=== PATIENT | female | born 1940 | race Caucasian/White ===

== ENCOUNTER 2017-03-16 09:05 | Day surgery (SDC) | payer MEDICARE, OTHER ==
[2017-03-16] VITALS (12 sets, daily range): BP systolic 131–188; BP diastolic 52–66; PULSE 45–70; TEMP 97.7
[~2017-03-16] VITALS: Ht 152.4 cm; Wt 71.3 kg
[~2017-03-16 09:05] MED LIST: NO HOME MEDICATIONS
[2017-03-16 09:40] LABS: HEMATOCRIT 40.2 % (37.0-47.0); HEMOGLOBIN 13.7 g/dl (12.5-16.0); MEAN CELL VOLUME 87 fl (80.0-100.0); MEAN CORPUSCULAR HEMOGLOBIN 30 pg (27.0-31.0); MEAN CORPUSCULAR HGB CONC 34 g/dl (33.0-37.0); MEAN PLATELET VOLUME 10.5 fl (7.4-10.4); PLATELET COUNT 209 K/mm3 (130-400); RED BLOOD COUNT 4.61 M/mm3 (4.10-5.30); WHITE BLOOD COUNT 7.9 K/mm3 (4.8-10.8)
[2017-03-16 09:44] LABS: PROTHROMBIN TIME 11.6 SECONDS (9.7-12.8)
[2017-03-16 09:59] LABS: CALCIUM 8.8 mg/dL (8.4-10.2); CREATININE, serum 0.86 mg/dL (0.52-1.25); POTASSIUM 4.3 mmol/L (3.4-5.0)
[2017-03-16] MEDS ORDERED: ASPIRIN 81M81 MG/TA2 PO (10:15)
[2017-03-16] MEDS ORDERED: LANTUS SOLOS100 U/ML SQ ×2 (10:16→10:18)
[2017-03-16] MEDS ORDERED: SYNTHROID0.1 MG/TAB PO (10:19)
[2017-03-16] MEDS ORDERED: PRINIVIL5 MG PO (10:19)
[2017-03-16] MEDS ORDERED: ZOCOR 40MG40 MG PO (10:20)
[2017-03-16] MEDS ORDERED: TOPROL XL 25MG25 MG PO (10:20)
== END 2017-03-16 15:48 | disposition home or self-care (01) ==
LOC: COL.CAR 09:05
PROVIDERS: Internal Medicine Cardiovascular Disease
DX: I25.10 Atherosclerotic heart disease of native coronary artery without angina pectoris (principal); R94.39 Abnormal result of other cardiovascular function study; E11.9 Type 2 diabetes mellitus without complications; I10 Essential (primary) hypertension; E78.2 Mixed hyperlipidemia; I25.2 Old myocardial infarction; Z86.73 Personal history of transient ischemic attack (TIA), and cerebral infarction without residual deficits; Z79.82 Long term (current) use of aspirin; Z79.4 Long term (current) use of insulin; Z79.899 Other long term (current) drug therapy; Z95.5 Presence of coronary angioplasty implant and graft
CPT/HCPCS: C1760; J2250; J3010

== ENCOUNTER 2022-12-01 10:03 | Emergency (ER) | payer MEDICARE, OTHER ==
[~2022-12-01] VITALS: Ht 152.4 cm; Wt 70.5 kg
[~2022-12-01 10:03] MED LIST changes: +ASPIRIN 81M81 MG/TA2 PO; +LANTUS SOLOS100 U/ML SQ; +PRINIVIL5 MG PO; +SYNTHROID0.1 MG/TAB PO; +TOPROL XL 25MG25 MG PO; +ZOCOR 40MG40 MG PO
[2022-12-01 10:20] VITALS: TEMP 97.4
[2022-12-01 11:55] VITALS: BP 118/82; PULSE 54
== END 2022-12-01 11:55 | disposition home or self-care (01) ==
LOC: COL.ER 10:03
DX: R44.1 Visual hallucinations (principal)

== ENCOUNTER 2022-12-19 13:30 | Emergency (ER) | payer MEDICARE, OTHER ==
[~2022-12-19] VITALS: Ht 152.4 cm; Wt 68.2 kg
[2022-12-19 13:34] VITALS: TEMP 97.6
[2022-12-19 14:25] LABS: COLLECTION METHOD CLEAN CATCH
[2022-12-19 14:29] LABS: URINE APPEARANCE Clear (CLEAR/HAZY); URINE BLOOD Negative (NEGATIVE); URINE COLOR Yellow (YELLOW); URINE GLUCOSE Negative (NEGATIVE); URINE KETONE Negative (NEGATIVE); URINE NITRATE Negative (NEGATIVE); URINE PROTEIN(semi-quant) Negative (NEGATIVE); URINE UROBILINOGEN 0.2 E.U/dL (0.2-1.0)
[2022-12-19 14:37] LABS: MUCOUS Present (NOT PRESENT); SQUAMOUS EPITHELIAL 0-2 /hpf (0-10); URINE BACTERIA Rare /hpf (NONE SEEN); URINE RBC None Seen /hpf (0-2)
[2022-12-19 15:12] LABS: BASO # 0.1 K/mm3 (0.0-0.2); BASO % 0.5 % (0.0-2.0); EOS # 0.1 K/mm3 (0.0-0.7); EOS % 0.5 % (0.0-4.0); GRAN # 6.7 K/mm3 (1.4-6.5); GRAN % 66.3 % (42.2-75.2); HEMOGLOBIN 14.5 g/dl (12.5-16.0); LYMPH # 2.2 K/mm3 (1.2-3.4); LYMPH % 22.1 % (20.0-51.0); MEAN CELL VOLUME 87 fl (80.0-100.0); MEAN CORPUSCULAR HEMOGLOBIN 30 pg (27-31); MEAN CORPUSCULAR HGB CONC 35 g/dl (33.0-37.0); MEAN PLATELET VOLUME 10.6 fl (7.4-10.4); MONO % 10.1 % (1.7-9.3); PLATELET COUNT 251 K/mm3 (130-400); RED BLOOD COUNT 4.83 M/mm3 (4.10-5.30); REDCELL DISTRIBUTION WIDTH-CV 12.9 % (11.5-14.5)
[2022-12-19 15:26] LABS: ALBUMIN 3.5 gm/dL (3.4-4.8); BILIRUBIN,TOTAL 0.7 mg/dL (0.2-1.2); CALCIUM 9.1 mg/dL (8.4-10.2); CREATININE, serum 1.48 mg/dL (0.57-1.11); POTASSIUM 3.9 mmol/L (3.5-4.5)
[2022-12-19 15:53] VITALS: BP 116/78; PULSE 70
== END 2022-12-19 15:59 | disposition home or self-care (01) ==
LOC: COL.ER 13:30
PROVIDERS: Emergency Medicine
DX: R19.7 Diarrhea, unspecified (principal); E86.0 Dehydration; E87.1 Hypo-osmolality and hyponatremia; R79.89 Other specified abnormal findings of blood chemistry; Z28.310 Unvaccinated for COVID-19
CPT/HCPCS: J7030

== ENCOUNTER 2024-08-29 16:09 | Observation (INO) | payer MEDICARE, OTHER ==
[~2024-08-29] VITALS: Ht 149.9 cm; Wt 68.1 kg
[~2024-08-29 16:09] MED LIST changes: +PRINIVIL10 MG PO; -PRINIVIL5 MG PO
[2024-08-29 17:25] LABS: BASO # 0.1 K/mm3 (0.0-0.2); BASO % 0.6 % (0.0-2.0); EOS # 0.1 K/mm3 (0.0-0.7); EOS % 1.1 % (0.0-4.0); GRAN # 6.6 K/mm3 (1.4-6.5); HEMOGLOBIN 15.2 g/dl (12.5-16.0); LYMPH # 3.1 K/mm3 (1.2-3.4); LYMPH % 28.4 % (20.0-51.0); MEAN CELL VOLUME 88 fl (80.0-100.0); MEAN CORPUSCULAR HEMOGLOBIN 30 pg (27-31); MEAN CORPUSCULAR HGB CONC 35 g/dl (33.0-37.0); MEAN PLATELET VOLUME 10.9 fl (7.4-10.4); MONO % 9.4 % (1.7-9.3); PLATELET COUNT 278 K/mm3 (130-400); RED BLOOD COUNT 5.01 M/mm3 (4.10-5.30)
[2024-08-29 17:39] LABS: ALBUMIN 3.3 g/dL (3.4-4.8); BILIRUBIN,TOTAL 0.6 mg/dL (0.2-1.2); CALCIUM 9.3 mg/dL (8.4-10.2); CREATININE, serum 1.5 mg/dL (0.57-1.11); MAGNESIUM 2.1 mg/dL (1.6-2.6); TOTAL PROTEIN 7.2 g/dl (6.2-8.1)
[2024-08-29 17:51] LABS: TROPONIN-I 0.04 ng/mL (0.00-0.033)
[2024-08-29] MEDS ORDERED: NS 1,000 ML IV ONE (18:15)
[2024-08-29 18:49] LABS: COLLECTION METHOD CATHETER
[2024-08-29 18:52] LABS: URINE APPEARANCE CLEAR (CLEAR/HAZY); URINE BLOOD NEGATIVE (NEGATIVE); URINE COLOR YELLOW (YELLOW); URINE GLUCOSE 3+ (NEGATIVE); URINE KETONE NEGATIVE (NEGATIVE); URINE NITRATE NEGATIVE (NEGATIVE); URINE PROTEIN(semi-quant) NEGATIVE (NEGATIVE)
[2024-08-29 20:00] VITALS: BP 134/70; PULSE 59; TEMP 97.9
[2024-08-29] MEDS ORDERED: LR 1,000 ML IV SCH (20:45)
[2024-08-29] MEDS ORDERED: Acetaminophen 325 MG TAB PO PRN (20:45)
[2024-08-29 21:00] VITALS: BP_SYST 128
[2024-08-29] MEDS ORDERED: Famotidine 20 MG TAB PO SCH (21:00)
[2024-08-29] MEDS ORDERED: Atorvastatin 20 MG TAB PO SCH (21:00)
--- NOTE | 2024-08-29 21:30 | NUR ---
PATIENT BROUGHT TO FLOOR AT APPROXIMATELY 2039. PATIENT ACCOMPANIED WITH DAUGHTER, MARIE (DAMARI). IV TO LEFT FA WITH FLUIDS INFUSING AT 75ML/HOUR. PATIENT DENIES ANY PAIN AT THIS TIME. SKIN ASSESSMENT PERFORMED. INTAKE PERFORMED. MED RX COMPLETE IN ED. ED NURSE REPORTS PATIENT HAS SLIGHT CONFUSION. DAUGHTER TO STAY THE NIGHT TELESITTER IS NOT AN OPTION AT THIS TIME. PATIENT ABLE TO REPORT TO THIS NURSE, TIME, PLACE AND SITUATION. NO FURTHER NEEDS. CALL LIGHT IN REACH. BED ALARM ON.
[2024-08-30] VITALS (10 sets, daily range): BP systolic 108–138; BP diastolic 66–75; PULSE 52–62; TEMP 97.9–98.4
[2024-08-30] MEDS ORDERED: Glucagon 1 MG VIAL IM PRN (06:15)
[2024-08-30] MEDS ORDERED: Dextrose 50% Water 25 GM/50 ML SYRINGE IV PRN (06:15)
[2024-08-30] MEDS ORDERED: Dextrose (Glucose) 15 GM (4 x 3.75 GM) Chewable TABLET PACK PO PRN (06:15)
[2024-08-30 06:28] LABS: BASO # 0.1 K/mm3 (0.0-0.2); BASO % 0.5 % (0.0-2.0); EOS # 0.1 K/mm3 (0.0-0.7); EOS % 1.1 % (0.0-4.0); GRAN # 5.7 K/mm3 (1.4-6.5); GRAN % 56.5 % (42.2-75.2); HEMATOCRIT 37.8 % (37.0-47.0); HEMOGLOBIN 13.3 g/dl (12.5-16.0); LYMPH # 3.2 K/mm3 (1.2-3.4); LYMPH % 31.3 % (20.0-51.0); MEAN CELL VOLUME 88 fl (80.0-100.0); MEAN CORPUSCULAR HEMOGLOBIN 31 pg (27-31); MEAN CORPUSCULAR HGB CONC 35 g/dl (33.0-37.0); MEAN PLATELET VOLUME 10.7 fl (7.4-10.4); MONO % 10.2 % (1.7-9.3); PLATELET COUNT 246 K/mm3 (130-400); RED BLOOD COUNT 4.28 M/mm3 (4.10-5.30); REDCELL DISTRIBUTION WIDTH-CV 12.8 % (11.5-14.5)
[2024-08-30 06:37] LABS: CALCIUM 8.1 mg/dL (8.4-10.2); CREATININE, serum 1.08 mg/dL (0.57-1.11); POTASSIUM 3.4 mEq/L (3.5-4.5)
[2024-08-30 06:58] LABS: THYROID STIMULATING HORMONE 4.988 uIU/mL (0.350-4.940)
[2024-08-30] MEDS ORDERED: Insulin Lispro (HumaLOG) SQ SCH (08:00)
[2024-08-30] MEDS ORDERED: Potassium Bicarbonate/Citrate 20 MEQ Effervescent TAB PO SCH (08:45)
[2024-08-30] MEDS ORDERED: *Potassium Replacement Protocol MC SCH (08:45)
[2024-08-30] MEDS ORDERED: Lisinopril 10 MG TAB PO SCH (09:00)
[2024-08-30] MEDS ORDERED: amLODIPine 5 MG TAB PO SCH (09:00)
--- NOTE | 2024-08-30 09:15 | NUR ---
PATIENT ALERT AND ORIENTED X3. PATIENT DENIES PAIN AT THIS TIME. PATIENT ON TELEMETRY MONITORING, PATIENT ON ROOM AIR, DENIES SOA, CHEST DISCOMFORT AT THIS TIME. FLUIDS INFUSING PER EMAR. PATIENT EATING BREAKFAST WITH DAUGHTER ASSISTING HER. PATIENT SHIFT ASSESSMENT COMPLETED. CALL LIGHT WITHIN REACH. BED AT LOWEST POSITION.BED ALARM ON.
--- NOTE | 2024-08-30 09:17 | NUR ---
Edge Bonder met with patient to discuss discharge planning. Patient lives in [place] with her daughter, Rosy (ph#[phone]) who is at bedside. Patient sees Dr. Jarquin for primary care and gets her medications from [facility]. Patient stated they normally deliver her medications, however they will occasionally pick them up. Per patient's H&P, she ran out of her potassium medication three days ago. Patient's daughter stated she called the pharmacy but the PCP did not refill it. Patient does not drive at this time stating that her children do not let her, despite being a good class b driver. Rosy advised they don't let her drive because the worry about her memory impairment and want her to be safe. Patient stated her children always make sure she gets where she needs to go. Patient uses a cane mostly for ambulation, but has a walker she uses occasionally. Patient reported she is mostly independent with ADLS but does get some assistance from Rosy as needed. Patient belives she has DPOA-HC designating all three of her children: Rosy, Tomasa (ph#[phone]), and Landry. Patient plans to return home at time of discharge. TRAVIS discussed Home Health services and provided Medicare.gov list of agencies for review. Rosy stated she feels patient would benefit from in home PT/OT. Rosy also stated they would like to look into applying for Medicaid and hopefully get on the waiver for some additional in home services. TRAVIS consulted Teri Financial Counselor to meet with patient and Rosy. Discharge Plan: Home with Home Health
[2024-08-30 10:52] LABS: CHOLESTEROL RISK RATIO 3.6
--- NOTE | 2024-08-30 12:55 | NUR ---
D: [employer] Worker stopped by room on rounds. A: Pt was resting and content with 2 daughters in the room. Pt asked for prayer, christmas tree grower prayed with pt and her daughters. No other needs right now. P: [employer] Worker informed pt that if she needed anything from the christmas tree grower area to let her nurse know. [employer] Worker will follow up as needed.
--- NOTE | 2024-08-30 13:58 | NUR ---
Satellite Dish Installer followed up with patient and her daughter, Tomasa about Home Health. TRAVIS discussed with patient the benefits of Home Health. Choice for agency was [facility] so TRAVIS faxed referral to Vinnie at [facility] for review.
--- NOTE | 2024-08-30 15:37 | NUR ---
tin recovery worker attended multidisciplinary team meeting. Patient will discharge home and it is recommended she has home health. Patient selected [facility] earlier, TRAVIS Amaro faxed the referral. Discharge plan: Home with [facility]
[2024-08-30] MEDS ORDERED: KLOR-CON SPRIN10 MEQ PO (17:04)
--- NOTE | 2024-08-30 18:10 | NUR ---
PATIENT DISCAHRGE INSTRUCTIONS GIVEN TO DAUGHTER AND PATIENT. THEY VERBALIZED UNDERSTANDING. PATIENT IV REMOVED AND TELE DISCONTINUED. PATIENT ESCORTED OUT OF UNIT VIA WHEELCHAIR.
--- NOTE | 2024-08-31 13:11 | NUR ---
Lacquer Mixer contacted [facility] and faxed discharge orders.
== END 2024-08-30 18:10 | disposition home or self-care (01) ==
LOC: COL.ER 16:09 → SURG 19:05
PROVIDERS: Nurse Practitioner Primary Care; Physician Assistant; ADMIT Internal Medicine
DX: I25.10 Atherosclerotic heart disease of native coronary artery without angina pectoris (principal); I10 Essential (primary) hypertension; E03.9 Hypothyroidism, unspecified; E87.6 Hypokalemia; N17.9 Acute kidney failure, unspecified; E11.9 Type 2 diabetes mellitus without complications; Z79.899 Other long term (current) drug therapy; Z79.890 Hormone replacement therapy; Z79.4 Long term (current) use of insulin; Z79.82 Long term (current) use of aspirin; Z95.1 Presence of aortocoronary bypass graft
CPT/HCPCS: G0378; J1815; J7030; J7120